=== PATIENT | male | born 2000 | race Caucasian/White ===

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

== ENCOUNTER → 2021-12-01 | Outpatient (CLI) | payer OTHER ==
--- NOTE | 2021-12-01 12:29 | XR ---
EXAMINATION TYPE: XR thoracic spine 3 views complete DATE OF EXAM: 12/01/2021 Comparison: None Clinical History: 20-year-old male S20.229A FINDINGS: 12 rib-bearing thoracic vertebral bodies. All pedicles are visualized. There is mild disc space narro wing mid thoracic spine. Vertebral body heights are preserved and alignment is maintained. Impression: Mild degenerative disc disease midthoracic spine. No vertebral compression collapse or malalignment.
== END | disposition home or self-care (01) ==
LOC: RADXRMAIN 12:09
PROVIDERS: ATTEND Emergency Medicine
DX: M51.34 Other intervertebral disc degeneration, thoracic region (principal)
CPT/HCPCS: 72072